=== PATIENT | female | born 1965 | race Caucasian/White ===

== ENCOUNTER 2017-05-14 10:24 | Outpatient (CLI) | payer BC ==
--- NOTE | 2017-05-14 12:23 | DIAGNOSTIC IMAGING REPORT ---
PROCEDURE: XR KNEE 3 VIEWS - LEFT INDICATION: KNEE JOINT PAIN, LEFT TECHNIQUE: Three views. COMPARISON: None. FINDINGS: Osseous structures and joint spaces are normal. IMPRESSION: 1. Normal left knee.
== END 2017-05-14 23:00 ==
LOC: XR SRH 10:24
DX: M25.562 Pain in left knee (principal)